=== PATIENT | female | born 1940 | race Caucasian/White ===

== ENCOUNTER 2016-08-02 08:44 | Inpatient (IN) | payer OTHER ==
--- NOTE | ~2016-08-02 | CN ---
Consultation Report [facility] [address] [place]. [address] NAME: CHRISTOPHER DIAZ : 44 STATUS : ADM IN PAT#: [id number] AGE: 76 ADM/REG DATE : 08/02/16 MR#: [id number] REPORT SERV DATE: 08/05/16 DICTATED BY: DAYRON GARZA DATE: 08/05/16 REPORT STATUS : Draft TRANSCRIBED BY: MODJamie DATE: 08/05/16 PSYCHIATRIC CONSULTATION DATE OF CONSULTATION: 08/05/2016 I reviewed this patient's medical record. I discussed the patient's status with Dr. Watt. I discussed this patient's status with her son, Santos. HISTORY OF PRESENT ILLNESS: She was admitted in an unresponsive state. She began to move and to respond after her friends prayed over her. PAST PSYCHIATRIC HISTORY: She had an admission to [facility] which is a psychiatric facility about 40 years ago. She said at that time, she suffered a breakdown after her mother's . She explained that she was always very dependent on her mother when she was alive. She also reports recurring bouts of depression and brief periods of euphoria when sometimes she spent excessively, over the years. After her hospitalization in [place], she was followed at [facility] for a period of months or years. She saw psychiatrist, Dr. Mantilla, there. During 2 previous admissions to this hospital in April 2013 and in November 2015, she presented with leg weakness which was thought to have psychogenic etiology. SOCIAL HISTORY: She lives alone, with good family and yarsanism support. MENTAL STATUS: She was pleasant and cooperative in attitude. Her mood was mostly euthymic. However, her affect was somewhat labile with 1 or 2 brief episodes of crying and a rapid return to euthymia. Her thinking was logical. She had no delusions. She had no hallucinations. She was oriented to time, place, and person. DIAGNOSES: 1. Bipolar disorder, currently stable. 2. 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 RECOMMENDATIONS: I agree with her referral to rehabilitation for strength training. After discharge from rehab, she should consider returning to [facility] to get followup outpatient psychiatric care. She was readily agreeable to doing this. I will add Seroquel 25 mg p.o. at bedtime. She should continue on her current low dose of Cymbalta. DK/MODL Dayron Garza M.D. Consultation Report [place] [address] [address] NAME: CHRISTOPHER DIAZ : 42 STATUS : ADM IN PAT#: [id number] AGE: 76 ADM/REG DATE : 08/02/16 MR#: [id number] REPORT SERV DATE: 08/05/16 DICTATED BY: DAYRON GARZA DATE: 08/05/16 REPORT STATUS : Draft TRANSCRIBED BY: CALVIN DATE: 08/05/16 / [id number]
--- NOTE | ~2016-08-02 | DS ---
Discharge Summary [facility] [address] [place]. [address] NAME: CHRISTOPHER DIAZ : 44 STATUS : DIS IN PAT#: [id number] AGE: 76 ADM/REG DATE : 08/02/16 MR#: [id number] REPORT SERV DATE: 08/13/16 DICTATED BY: ARGENTINA HUA DATE: 08/08/16 REPORT STATUS : Draft TRANSCRIBED BY: CALVIN DATE: 08/08/16 ADMISSION DATE: 08/02/2016 DISCHARGE DATE: 08/08/2016 DISCHARGE DIAGNOSES: 1. Acute encephalopathy. 2. Catatonic episode. 3. Hypertension. 4. Diabetes mellitus type 2. 5. Bipolar disorder. 6. Chronic obstructive pulmonary disease. DISCHARGE CONDITION: Stable. CONSULTATION: 1. Neurology, Dr. Bobby. 2. Psychiatry, Dr. Dayron Krishnamurthy. INVASIVE PROCEDURES: None. HISTORY OF PRESENT ILLNESS: For detailed HPI, make reference to Dr. Gonzalez's dictation on 08/02/2016. In brief, this is a 76-year-old female with medical history of hypertension, COPD, bipolar disorder who was brought to the emergency room because of a period of unawareness/unresponsiveness at home, which was concerning for a possible CVA. On arrival to the emergency department, the patient's initial NIH scale was 27. The patient had an emergency CT scan that shows no evidence of intracranial bleed. The patient subsequently received the tPA. The patient air way remained intact, did not require any intubation. The patient did not respond to any painful, verbal, or voice stimulus. The patient was subsequently transferred to the ICU for further monitoring. In the ICU, MRI of the brain was done that showed no acute intracranial abnormality. A lumbar puncture was done that showed no evidence of infection. Given the history of bipolar disorder, psychiatry was consulted. Upon further review of patient's history, it was noted that patient skipped some of bipolar medications at home. Psychiatry recommended to restart antipsychotic medication, they recommended home dose. The patient progressively became more awake and alert. The patient's blood sugar remained stable. The patient had no evidence of sepsis. The patient had no evidence of infection/sepsis. It was noted that the patient's episode of transient episode of unresponsiveness may have been a psychogenic unawareness, may be explained by catatonia, however, since recommence in patient's home medication, the patient continued to be awake, alert, oriented. The patient was subsequently transferred to the medical floor. On the medical floor, the patient continued to be pleasant, cooperative, had no behavioral disturbance. The patient was advised to continue home medication. The patient was subsequently discharged to [facility] [place]. DISCHARGE DISPOSITION: [facility]. DISCHARGE MEDICATION: Discharge Summary [address] [address] NAME: CHRISTOPHER DIAZ : 44 STATUS : DIS IN PAT#: [id number] AGE: 76 ADM/REG DATE : 08/02/16 MR#: [id number] REPORT SERV DATE: 08/13/16 DICTATED BY: ARGENTINA HUA DATE: 08/08/16 REPORT STATUS : Draft TRANSCRIBED BY: CALVIN DATE: 08/08/16 1. Norvasc 10 mg p.o. daily. 2. Aspirin 81 mg p.o. daily. 3. Pravastatin 20 mg p.o. daily. 4. Cymbalta 30 mg p.o. every morning. 5. Gabapentin 300 mg p.o. t.i.d. 6. Lopressor 12.5 mg p.o. b.i.d. 7. Melatonin 5 mg p.o. at bedtime. 8. Vitamin B12, one tab p.o. daily. 9. Baclofen 10 mg p.o. at bedtime. 10.Vitamin D3 2000 units p.o. daily. DISCHARGE FOLLOWUP: Follow up with primary care physician as an outpatient within one to two weeks of discharge. Continue follow up with primary psychiatrist as an outpatient. DICTATED BY: MD AFRICA Duran/CALVIN Argentina Hua MD / [id number] CC: MD Cipriano Duran M.D.
--- NOTE | ~2016-08-02 | HP ---
History And Physical [place] [id number] [facility] [place]. [address] NAME: CHRISTOPHER DIAZ : 42 STATUS : ADM IN [facility]#: [id number] AGE: 76 ADM/REG DATE : 08/02/16 MR#: [id number] REPORT SERV DATE: 08/02/16 DICTATED BY: AUSTIN GONZALEZ DATE: 08/02/16 REPORT STATUS : Draft TRANSCRIBED BY: MODL DATE: 08/02/16 DATE OF ADMISSION: 08/02/2016 HISTORY OF PRESENT ILLNESS: This is a 76-year-old female who is brought to the hospital after a period of unresponsiveness. Family last had seen her normal at 6:30 a.m. this morning. Her initial NIH scale was 27. Neurology evaluated the patient and enrolled her in for possible stroke. TPA was given this morning. She has thus far tolerated that well and was transferred to the ICU for further monitoring. Airway has been intact and she has not required intubation or airway support. The patient is really unresponsive to painful stimuli, verbal stimuli, or voice. Rest of the history is unable to be obtained. We do know that she was given Narcan without any response. Family had found her in a chair slumped over and not responding. EMS is the one who gave the Narcan without any reaction. REVIEW OF SYSTEMS: Unable to be obtained. PAST MEDICAL HISTORY: COPD, pulmonary embolism and DVT, headaches, bipolar and depression, type 2 diabetes, hypertension, GERD, restless legs, dyslipidemia, stroke, fatty liver disease, splenomegaly, obstructive sleep apnea, lymphedema. PAST SURGICAL HISTORY: Neck surgery, wrist surgery, lumbar spine surgery, hysterectomy with oophorectomy, cholecystectomy, appendectomy, left knee surgery, right shoulder surgery. ALLERGIES: CODEINE. HOME MEDICATION LIST: Reviewed. SOCIAL HISTORY: Lives in [place], [place]. . Quit alcohol in 1989. Quit smoking in 1993. She does have children. FAMILY HISTORY: Stroke and heart disease. PHYSICAL EXAMINATION: VITAL SIGNS: Per nursing flow sheet. GENERAL: No acute distress, lying in bed, eyes closed. NEURO: Really unresponsive to voice or noxious stimuli. Otherwise, unable to get any type of significant neuro exam. She is protecting her airway. HEENT: Normocephalic and atraumatic. Pupils are equal. NECK: Trachea midline. HEART: Regular rate and rhythm. No murmurs. LUNGS: Clear to auscultation bilaterally. No wheezes, rales, or rubs. GI: Soft, nontender, nondistended. EXTREMITIES: No cyanosis or clubbing. There is some trace edema. LABORATORIES AND RADIOLOGY STUDIES: Reviewed. History And Physical [address] [place]. [address] NAME: CHRISTOPHER DIAZ : 44 STATUS : ADM IN [facility]#: [id number] AGE: 76 ADM/REG DATE : 08/02/16 MR#: [id number] REPORT SERV DATE: 08/02/16 DICTATED BY: AUSTIN GONZALEZ DATE: 08/02/16 REPORT STATUS : Draft TRANSCRIBED BY: CALVIN DATE: 08/02/16 ASSESSMENT AND PLAN: 1. Unresponsive. 2. Possible stroke. 3. Type 2 diabetes. 4. Clinical chronic obstructive pulmonary disease by history. 5. Hypertension. We will provide supportive care here in the ICU. Neuro checks per stroke protocol. The patient is to get an MRI and EEG per Neurology. We will get glucose checks for her diabetes and cover her if needed. We will place her on a bronchodilator protocol. Monitor blood pressure. We will reconcile medications. CEP/MODL Austin Gonzalez DO / [id number] CC: DO Cipriano Black M.D.
--- NOTE | ~2016-08-02 | EEG ---
Electroencephalogram [place] [address] [place]. [address] NAME: CHRISTOPHER DIAZ : 44 STATUS : ADM IN PAT#: [id number] AGE: 76 ADM/REG DATE : 08/02/16 MR#: [id number] REPORT SERV DATE: 08/02/16 DICTATED BY: DATE: REPORT STATUS : Draft TRANSCRIBED BY: MODL DATE: 08/02/16 NEUROLOGY EEG EVALUATION CLINICAL INDICATIONS: Comatose state. DESCRIPTION: This EEG was performed using 10/20 electrode placement system. During the EEG study, symmetric background activity was noted with predominant occipital rhythm of roughly 8 hertz. Photic stimulation was performed with driving response. Hyperventilation was not performed secondary to the patient's underlying medical condition. During the EEG study, the patient was noted to have achieved drowsy state as well as stage I and II sleep. No focal abnormalities, seizure activity, or seizure discharge was otherwise noted during the EEG evaluation. INTERPRETATION: This EEG study obtained during awake and drowsy state may be considered within normal limits. No focal abnormalities, seizure activity, or seizure discharge was seen. No electrographic seizure was otherwise noted during the EEG study. [facility]/MODL Jose F Bobby MD / [id number] CC: DO Cipriano Black M.D.
--- NOTE | ~2016-08-02 | CN ---
Consultation Report [facility] [address] [place]. [address] NAME: CHRISTOPHER DIAZ : 44 STATUS : ADM IN PAT#: [id number] AGE: 76 ADM/REG DATE : 08/02/16 MR#: [id number] REPORT SERV DATE: 08/02/16 DICTATED BY: DATE: REPORT STATUS : Draft TRANSCRIBED BY: MODL DATE: 08/02/16 NEUROLOGY CONSULTATION DATE OF CONSULTATION: 08/02/2016 REASON FOR CONSULT: Unresponsiveness, concern for stroke. HISTORY OF PRESENT ILLNESS: This is a 76-year-old female, presented to [facility] on 08/02/2016 as the patient was found to be completely unresponsive. The patient was last noted to be normal on 08/02/2016 at 0630 hours when the patient was found by a friend to be unresponsive. EMS was called, and the patient was brought to the emergency department for further evaluation. The patient's son was present during the evaluation and denies any similar events in the past. Denies any recent illness, fever, chills, nausea, vomiting, chest pain, or shortness of breath. No reports of seizure-like activity was otherwise reported. The patient was not noted to have any history of seizures in the past. The patient's son denies any recent psychosocial stress. The patient does have a history of Eliquis as well as Xarelto usage for unclear reason, but sounds as the patient also had a history of DVT and pulmonary embolism. The patient has recently being taken off Xarelto and has not been taking any anticoagulations except for aspirin. The patient's son denies any recent changes in medication and denies any other issues. REVIEW OF SYSTEMS: Unable to be obtained from the patient. Per friend and son, it is otherwise negative. PAST MEDICAL HISTORY: Significant for COPD, pulmonary embolism, and DVT, chronic headaches, diabetes, as well as hypertension, gastroesophageal reflux disease, migraine headache, restless legs, and elevated cholesterol. The patient does have a history of strokes in the past as well as lymphedema, and obstructive sleep apnea. Per medical record in 2014, the patient was noted to have a history of bipolar disorder with depression. The patient does not appear to be on any antipsychotic right now. ALLERGIES: THE PATIENT WAS NOTED TO HAVE ALLERGY TO CODEINE. MEDICATIONS: The patient's list of medications consist of multivitamin, fish oil, omega-3 fatty acid, tramadol, potassium, calcium, vitamin D3, gabapentin, duloxetine, tizanidine, vitamin B complex, vitamin C, Requip, amlodipine, aspirin, lisinopril, metoprolol, pravastatin, Levemir, and baclofen. FAMILY HISTORY: Significant for diabetes as well as stroke and heart disease. SOCIAL HISTORY: The patient's son denies any tobacco, alcohol, or recreational drug usage. The patient apparently gets around with a walker at that time. The patient quit alcohol in 1989 and smoking in 1993. Consultation Report [place] [address] [place] [place]. [address] NAME: CHRISTOPHER DIAZ : 44 STATUS : ADM IN [facility]#: [id number] AGE: 76 ADM/REG DATE : 08/02/16 MR#: [id number] REPORT SERV DATE: 08/02/16 DICTATED BY: DATE: REPORT STATUS : Draft TRANSCRIBED BY: MODL DATE: 08/02/16 PHYSICAL EXAMINATION: VITAL SIGNS: At the time of evaluation, the patient was noted to have vital signs with T- max of 96.6, heart rate of 70, respirations of 12, and blood pressure of 151/56. GENERAL: The patient is well developed, well nourished, in no acute distress. CARDIOVASCULAR: Regular rate and rhythm. No carotid bruits were otherwise auscultated. PULMONARY: Clear to auscultation bilaterally. NEUROLOGICAL: Generally, the patient is comatose, unresponsive, and not following commands and not answering questions. Otherwise, the patient is protecting airway at the time of evaluation. Cranial nerves 2 through 12; pupils equal, round, and reactive to light. Horizontal eye movement was noted at the time of evaluation. Intact blink to threat response. Facial expression appeared to be symmetric. The patient demonstrated no apparent sensation to noxious stimulation in the facial area. Otherwise, the patient demonstrated no spontaneous movement. EXTREMITIES: However, while the patient was being moved from the stretcher to the CT scan of the bed, the patient was noted to have some trace movement of arms against gravity. The patient, in addition, was also noted to have ability to hold the left upper extremity against gravity for 1 second prior to the controlled fall. The patient's arm was elevated above the forehead, but does not have any falls of the arms against the head bilaterally. The patient, otherwise, demonstrated no grimace, posture, or withdrawal to noxious stimulation in bilateral upper and lower extremity. Deep tendon reflex was trace. Gait and cerebellar examination was not performed secondary to the patient's mental status. LABORATORY DATA: Laboratory study demonstrates sodium 141, potassium 4.3, chloride 107, bicarb 27, BUN of 28, creatinine 1.37, glucose of 132, calcium of 9.0, magnesium 2.1. White blood cell count of 7.8, hemoglobin of 13.7, hematocrit of 42.0, and platelet count of 460. CT scan of the brain, otherwise, demonstrated no acute process. Radiology report for CTA of the head and neck is currently pending. IMPRESSION: Unresponsiveness, last noted to be normal at 0630 hour today. The patient does not have any history of prior similar symptoms in the past. No seizure-like activity was noted and no history of seizure per medical records or family members. The patient's son denies any recent psychosocial stress. The patient was noted to have some ability to maintain the arm elevation against gravity on examination as well as controlled fall with the patient's arm does not fall against the forehead. NIH stroke scale was noted to be 27. TPA was initiated at 0858 for a presumed stroke. We will admit the patient to ICU for post tPA care. We will obtain MRI of her brain without contrast, obtain EEG. If no improvement or etiology for unresponsive was noted, we will obtain lumbar puncture in 24 hours after tPA. RECOMMENDATION: 1. Admit to ICU. 2. MRI of her brain without contrast. 3. EEG. 4. Ammonia, UDS, vitamin B12, folate, TSH, free T4, fasting lipid panel, and hemoglobin Consultation Report [place] [address] [facility] [place]. [address] NAME: CHRISTOPHER DIAZ : 44 STATUS : ADM IN PAT#: [id number] AGE: 76 ADM/REG DATE : 08/02/16 MR#: [id number] REPORT SERV DATE: 08/02/16 DICTATED BY: DATE: REPORT STATUS : Draft TRANSCRIBED BY: MODL DATE: 08/02/16 A1c with laboratory study. 5. Lipitor 80 mg p.o. at bedtime. 6. PT/OT, Speech Therapy evaluation and treatment. 7. Lumbar puncture in 24 hours after EEG if no symptomatic improvement was noted. [facility]/MODL Jose F Bobby MD / [id number] CC: DO Cipriano Black M.D.
[~2016-08-02 08:44] MED LIST: ACCUNEB INH; ARICEPT10 PO; ASAB PO; ASABAYER PO; BISR PR; BIST PO; C5 PO; CALTRA600D PO; CALTRAT600 PO; CENTRUM TAB1 TAB PO; CLARIT10 PO; DCN100 PO; DSS PO; DULERA 200 MCG/13 GM INH; FISH OIL1200 MG PO; FISH-EPA1000 MG PO; GLUCPH PO; GLUCPH8 PO; HALF81 PO; HCTZ25B PO; HUMULIN SC; HYDROCHLOROT25 MG PO; IBU800 PO; IRON PO; IRON325 MG PO; K-TABS10 MEQ PO; KLOR-CON M1010 MEQ PO; LEVAQUIN750 MG PO; LEVEMFLXPN SC; LEVEMIR SC; LEXAPRO20 PO; MAGOX4 PO; MELA3 PO; MELATONIN5 M1 PO; METHOC500B PO; MEVACOR10 MG PO; MEVACOR40 MG PO; MOMUD PO; MONO20 PO; MONOPRIL40 MG PO; MSCONT15 PO; MULTIPLE VIT PO; MULTIVIT/MIN PO; NORV10 PO; NOVOLOGMIX; NOVOLOGMIX SC; P5 PO; PCET PO; POT GLUCONAT595 M1 OR; PRILO PO; PRIN20 PO; PROVIGIL2 PO; REQUIP1 PO; REQUIP2 PO; STRESS600T PO; SUPER B-100 PO; SURBEX-T1 TAB PO; T PO; TOPAMAX200 MG PO; TRAZ100 PO; ULTRAM50 PO; V5 PO; VITAMIN B PO; VITAMIN D1000 UNI1 PO; VITAMIN D31000 UNIT PO; ZANTAC150 MG PO; ZESTRIL20 MG PO; [UNRECOGNIZED DRUG - CODE] OR
[2016-08-02 08:50] LABS: BASOPHILS 0.3 %; BASOPHILS ABSOLUTE 0.02 10/3/uL (0.0-0.16); EOSINOPHILS 0.9 %; EOSINOPHILS ABSOLUTE 0.07 10/3/uL (0.0-0.53); ER CBC TAT 0 Hrs 09 Mins; HEMOGLOBIN 13.7 g/dL (12.0-16.0); IMMATURE GRANULOCYTES 0.4 %; IMMATURE GRANULOCYTES ABSOLUTE 0.03 10/3/uL (0.0-0.11); LYMPHOCYTES 20.9 %; LYMPHOCYTES ABSOLUTE 1.64 10/3/uL (0.67-4.30); MEAN CORPUS HGB CONC 32.6 g/dL (32.0-36.0); MEAN CORPUSCULAR HEMOGLOB 29.3 pg (26.0-34.0); MEAN CORPUSCULAR VOLUME 89.7 fL (80-100); MEAN PLATELET VOLUME 11.3 fL (9.2-13.0); MONOCYTES 6.3 %; MONOCYTES ABSOLUTE 0.49 10/3/uL (0.21-1.20); NEUTROPHILS 71.2 %; NEUTROPHILS ABSOLUTE 5.58 10/3/uL (2.02-8.40); PLATELET COUNT 160 10/3/uL (150-400); RBC DISTRIBUTION WIDTH 13.1 % (12.0-16.0); RED CELL COUNT 4.68 10/6/uL (4.0-5.6); WHITE BLOOD CELLS 7.8 10/3/uL (4.5-10.5)
[2016-08-02 08:51] LABS: MANUAL DIFF NO %
[2016-08-02] MEDS ORDERED: *UNABLE3 (08:51)
[2016-08-02] MEDS ORDERED: FISH OIL (08:51)
[2016-08-02] MEDS ORDERED: TRAMADOL (08:51)
[2016-08-02] MEDS ORDERED: ONE A DAY VITAMIN (08:51)
[2016-08-02] MEDS ORDERED: CALCIUM + D (08:52)
[2016-08-02] MEDS ORDERED: GABAPENTIN (08:52)
[2016-08-02] MEDS ORDERED: TIZANIDINE (08:52)
[2016-08-02] MEDS ORDERED: CYMBALTA (08:52)
[2016-08-02] MEDS ORDERED: POTASSIUM (08:52)
[2016-08-02 08:53] LABS: PARTIAL THROMBO TIME 23.9 SEC (22.5-37.2)
[2016-08-02] MEDS ORDERED: REQUIP (08:53)
[2016-08-02] MEDS ORDERED: IRON (08:53)
[2016-08-02] MEDS ORDERED: B COMPLEX (08:53)
[2016-08-02] MEDS ORDERED: FOLIC (08:53)
[2016-08-02] MEDS ORDERED: ASPIRIN (08:53)
[2016-08-02] MEDS ORDERED: NORVASC (08:53)
[2016-08-02] MEDS ORDERED: VITAMIN C (08:53)
[2016-08-02] MEDS ORDERED: LISINOPRIL (08:54)
[2016-08-02] MEDS ORDERED: PRAVASTATIN (08:55)
[2016-08-02] MEDS ORDERED: LEVEMIR (08:55)
[2016-08-02] MEDS ORDERED: LOPRESSOR (08:55)
[2016-08-02] MEDS ORDERED: BACLOFEN (08:56)
[2016-08-02] MEDS ORDERED: VITAMIN D (08:57)
[2016-08-02 09:03] LABS: CHEST PAIN PROFILE TAT 0 Hrs 22 Mins; CHLORIDE, SERUM 107 MMOL/L (96-112); CO2 (CARBON DIOXIDE) 27 MMOL/L (24-34); CREATININE 1.37 MG/DL (0.55-1.02); GFR AFRICAN AMERICAN 44 ML/MIN (>=60); GFR NON AFRICAN AMERICAN 38 ML/MIN (>=60); POTASSIUM, SERUM 4.3 MMOL/L (3.5-5.3); SODIUM, SERUM 141 MMOL/L (135-148); TROPONIN I <0.02 NG/ML (<0.05)
[2016-08-02 09:06] LABS: ACETAMINOPHEN LEVEL (TYLENOL) < 2.0 MCG/ML (10.0-20.0); ALCOHOL < 10 MG/DL (0); BUN (BLOOD UREA NITROGEN) 28 MG/DL (6-23); GLUCOSE, SERUM 132 MG/DL (60-99); SALICYLATE < 1.7 MG/DL (-)
[2016-08-02 09:34] LABS: CREATININE 1.3 MG/DL (0.55-1.02)
[2016-08-02 10:04] LABS: ASCORBIC ACID (UR NOT ORDER) NEG (NEG); BILIRUBIN, URINE NEGATIVE (NEG); ER URINALYSIS TAT 0 Hrs 14 Mins; KETONE, URINE NEGATIVE (NEG); LEUKOCYTE ESTERASE(NOT OR NEG (NEG); NITRITE (URINE) NEG (NEG); WBC (NOT ORDERED) (RFLEX) 2 (0-5)
[2016-08-02 10:22] LABS: AMPHETAMINES (NOT ORD) NEG (NEG); BARBITURATES (NOT ORDERED NEG (NEG); BENZODIAZEPINES (NOT ORD) NEG (NEG); CANNABINOIDS (THC) NEG (NEG); COCAINE (NOT ORDERED) NEG (NEG); OPIATES NEG (NEG); PHENCYCLIDINE(PCP) NEG (NEG); TRICYCLICS NEG (NEG)
[2016-08-02 12:32] LABS: BASOPHILS 0.3 %; BASOPHILS ABSOLUTE 0.03 10/3/uL (0.0-0.16); EOSINOPHILS 0.3 %; EOSINOPHILS ABSOLUTE 0.03 10/3/uL (0.0-0.53); HEMATOCRIT 43.1 % (36.0-48.0); HEMOGLOBIN 14.4 g/dL (12.0-16.0); IMMATURE GRANULOCYTES 0.2 %; IMMATURE GRANULOCYTES ABSOLUTE 0.02 10/3/uL (0.0-0.11); LYMPHOCYTES 17.4 %; LYMPHOCYTES ABSOLUTE 1.55 10/3/uL (0.67-4.30); MEAN CORPUS HGB CONC 33.4 g/dL (32.0-36.0); MEAN CORPUSCULAR VOLUME 89.8 fL (80-100); MEAN PLATELET VOLUME 11.4 fL (9.2-13.0); MONOCYTES 5.1 %; MONOCYTES ABSOLUTE 0.45 10/3/uL (0.21-1.20); NEUTROPHILS 76.7 %; NEUTROPHILS ABSOLUTE 6.82 10/3/uL (2.02-8.40); PLATELET COUNT 153 10/3/uL (150-400); RBC DISTRIBUTION WIDTH 12.9 % (12.0-16.0); WHITE BLOOD CELLS 8.9 10/3/uL (4.5-10.5)
[2016-08-02 12:34] LABS: MANUAL DIFF NO %
[2016-08-02 12:42] LABS: INTERNATIONAL NORMAL RATI 1.1 UNITS (-); PARTIAL THROMBO TIME 24.9 SEC (22.5-37.2); PROTIME (NOT ORD) 13.7 SEC (12.0-14.5)
[2016-08-02 13:19] LABS: GLYCOHEMOGLOBIN (HbA1c) 8.6 % (4.7-6.1)
[2016-08-02 13:22] LABS: PLATELET ESTIMATE ADQ (ADEQUATE)
[2016-08-02 13:23] LABS: RBC MORPHOLOGY NORM (NORMAL)
[2016-08-02 13:24] LABS: CHOL/HDL RATIO(NOT ORDER) 4.2 (0-5); CHOLESTEROL 155 MG/DL (< 200); CPK (IF ELEVATED MB BANDS) 80 U/L (0-200); FREE T4 0.93 NG/DL (0.76-1.46); HDL CHOLESTEROL 37 MG/DL (> 49); LDL CHOLESTEROL 94 MG/DL (< 130); NON-HDL CHOLESTEROL 118 MG/DL (< 160); TRIGLYCERIDE 120 MG/DL (< 150); TROPONIN I <0.02 NG/ML (<0.05)
[2016-08-02 13:25] LABS: FOLATE 35.5 NG/ML (>5.2); ULTRASENSITIVE TSH 0.751 MCIU/ML (0.358-3.740)
[2016-08-02 13:48] LABS: PROCALCITONIN 0.05 ng/mL (<0.5)
[2016-08-02 20:01] LABS: CPK (IF ELEVATED MB BANDS) 46 U/L (0-200); TROPONIN I <0.02 NG/ML (<0.05)
[2016-08-03 04:06] LABS: BASOPHILS 0.2 %; BASOPHILS ABSOLUTE 0.02 10/3/uL (0.0-0.16); EOSINOPHILS 0.9 %; EOSINOPHILS ABSOLUTE 0.08 10/3/uL (0.0-0.53); HEMATOCRIT 42.4 % (36.0-48.0); HEMOGLOBIN 13.8 g/dL (12.0-16.0); IMMATURE GRANULOCYTES 0.1 %; IMMATURE GRANULOCYTES ABSOLUTE 0.01 10/3/uL (0.0-0.11); LYMPHOCYTES 23.5 %; LYMPHOCYTES ABSOLUTE 2.04 10/3/uL (0.67-4.30); MEAN CORPUS HGB CONC 32.5 g/dL (32.0-36.0); MEAN CORPUSCULAR HEMOGLOB 29.6 pg (26.0-34.0); MEAN CORPUSCULAR VOLUME 90.8 fL (80-100); MEAN PLATELET VOLUME 11.4 fL (9.2-13.0); MONOCYTES 7.1 %; MONOCYTES ABSOLUTE 0.62 10/3/uL (0.21-1.20); NEUTROPHILS 68.2 %; NEUTROPHILS ABSOLUTE 5.92 10/3/uL (2.02-8.40); PLATELET COUNT 148 10/3/uL (150-400); RBC DISTRIBUTION WIDTH 13.2 % (12.0-16.0); RED CELL COUNT 4.67 10/6/uL (4.0-5.6); WHITE BLOOD CELLS 8.7 10/3/uL (4.5-10.5)
[2016-08-03 04:08] LABS: MANUAL DIFF NO %
[2016-08-03 04:29] LABS: CALCIUM, SERUM 8.2 MG/DL (8.5-10.4); CHLORIDE, SERUM 105 MMOL/L (96-112); CO2 (CARBON DIOXIDE) 28 MMOL/L (24-34); CPK (IF ELEVATED MB BANDS) 36 U/L (0-200); CREATININE 1.03 MG/DL (0.55-1.02); GFR AFRICAN AMERICAN 62 ML/MIN (>=60); GFR NON AFRICAN AMERICAN 54 ML/MIN (>=60); GLUCOSE, SERUM 147 MG/DL (60-99); POTASSIUM, SERUM 3.9 MMOL/L (3.5-5.3); SODIUM, SERUM 139 MMOL/L (135-148); TROPONIN I <0.02 NG/ML (<0.05)
[2016-08-03 04:30] LABS: BUN (BLOOD UREA NITROGEN) 20 MG/DL (6-23)
[2016-08-03] MEDS ORDERED: LEVEMIR SC (10:00)
[2016-08-03] MEDS ORDERED: ZANAFLEX 4 MG TA4 MG PO (10:01)
[2016-08-03] MEDS ORDERED: KLOR-CON 1010 MEQ PO (10:01)
[2016-08-03] MEDS ORDERED: REQUIP2 PO (10:02)
[2016-08-03] MEDS ORDERED: NEUR300 PO (10:03)
[2016-08-03] MEDS ORDERED: PRIN5 PO (10:03)
[2016-08-03] MEDS ORDERED: LOP25 PO (10:13)
[2016-08-03] MEDS ORDERED: PRAVAC PO (10:13)
[2016-08-03] MEDS ORDERED: MULTIVIT/MIN PO (10:14)
[2016-08-03] MEDS ORDERED: ASAB PO (10:15)
[2016-08-03] MEDS ORDERED: FISH OIL1200 MG PO (10:15)
[2016-08-03] MEDS ORDERED: CALTRA600D PO (10:16)
[2016-08-03] MEDS ORDERED: ADVIL PM1 CAP PO (10:17)
[2016-08-03] MEDS ORDERED: FERROUS SULF325 M1 PO (10:17)
[2016-08-03] MEDS ORDERED: MELATONIN5 M1 PO (10:18)
[2016-08-03] MEDS ORDERED: VITAMIN B PO (10:18)
[2016-08-03] MEDS ORDERED: VITAMIN C PO (10:19)
[2016-08-03] MEDS ORDERED: CYMBALTA30 PO (15:30)
[2016-08-03] MEDS ORDERED: LIOR10 PO (15:31)
[2016-08-03] MEDS ORDERED: VITAMIN D31000 UNIT PO (15:32)
[2016-08-03] MEDS ORDERED: NORV10 PO (15:39)
[2016-08-04 04:30] LABS: BASOPHILS 0.3 %; BASOPHILS ABSOLUTE 0.03 10/3/uL (0.0-0.16); EOSINOPHILS 0.9 %; HEMATOCRIT 43.9 % (36.0-48.0); HEMOGLOBIN 13.9 g/dL (12.0-16.0); IMMATURE GRANULOCYTES 0.3 %; IMMATURE GRANULOCYTES ABSOLUTE 0.03 10/3/uL (0.0-0.11); LYMPHOCYTES 17.1 %; LYMPHOCYTES ABSOLUTE 1.82 10/3/uL (0.67-4.30); MEAN CORPUS HGB CONC 31.7 g/dL (32.0-36.0); MEAN CORPUSCULAR HEMOGLOB 28.9 pg (26.0-34.0); MEAN CORPUSCULAR VOLUME 91.3 fL (80-100); MEAN PLATELET VOLUME 10.8 fL (9.2-13.0); MONOCYTES 8.9 %; MONOCYTES ABSOLUTE 0.95 10/3/uL (0.21-1.20); NEUTROPHILS 72.5 %; NEUTROPHILS ABSOLUTE 7.69 10/3/uL (2.02-8.40); PLATELET COUNT 147 10/3/uL (150-400); RED CELL COUNT 4.81 10/6/uL (4.0-5.6); WHITE BLOOD CELLS 10.6 10/3/uL (4.5-10.5)
[2016-08-04 04:33] LABS: MANUAL DIFF NO %
[2016-08-04 04:45] LABS: BUN (BLOOD UREA NITROGEN) 18 MG/DL (6-23); CALCIUM, SERUM 8.6 MG/DL (8.5-10.4); CHLORIDE, SERUM 105 MMOL/L (96-112); CO2 (CARBON DIOXIDE) 27 MMOL/L (24-34); CREATININE 1.05 MG/DL (0.55-1.02); GFR AFRICAN AMERICAN 61 ML/MIN (>=60); GFR NON AFRICAN AMERICAN 52 ML/MIN (>=60); GLUCOSE, SERUM 173 MG/DL (60-99); PHOSPHORUS, SERUM 3.2 MG/DL (2.5-4.5); POTASSIUM, SERUM 4.1 MMOL/L (3.5-5.3); SODIUM, SERUM 139 MMOL/L (135-148)
[2016-08-04 14:27] LABS: GLUCOSE CSF 92 MG/DL (45-70); TOTAL PROTEIN, CSF 70.5 MG/DL (15-45)
[2016-08-04 14:37] LABS: CSF BASO 0 % (NO REF RANGE); CSF EOS 1 % (0-1); CSF LYMPH (NOT ORD) 20 % (28-96); CSF MONO 6 % (16-56); CSF SEGS (NOT ORD) 73 % (0-7); CSF WBC (NOT ORD) 24 /uL (0-10)
[2016-08-04 14:38] LABS: CSF APPEARANCE (NOT ORD) CLOUDY (CLEAR); CSF COLOR (NOT ORD) RED (COLORLESS); CSF RBC (NOT ORD) 8000 MM3 (NO REFERENCE); CSF XANTHROCHROMIA NEG (NEG)
[2016-08-05 07:50] LABS: BASOPHILS 0.3 %; BASOPHILS ABSOLUTE 0.03 10/3/uL (0.0-0.16); EOSINOPHILS 1.3 %; EOSINOPHILS ABSOLUTE 0.12 10/3/uL (0.0-0.53); HEMATOCRIT 45.2 % (36.0-48.0); HEMOGLOBIN 14.6 g/dL (12.0-16.0); IMMATURE GRANULOCYTES 0.3 %; IMMATURE GRANULOCYTES ABSOLUTE 0.03 10/3/uL (0.0-0.11); LYMPHOCYTES 21.5 %; LYMPHOCYTES ABSOLUTE 2.01 10/3/uL (0.67-4.30); MEAN CORPUS HGB CONC 32.3 g/dL (32.0-36.0); MEAN CORPUSCULAR HEMOGLOB 29.4 pg (26.0-34.0); MEAN CORPUSCULAR VOLUME 90.9 fL (80-100); MEAN PLATELET VOLUME 11.3 fL (9.2-13.0); MONOCYTES 9.8 %; MONOCYTES ABSOLUTE 0.92 10/3/uL (0.21-1.20); NEUTROPHILS 66.8 %; NEUTROPHILS ABSOLUTE 6.24 10/3/uL (2.02-8.40); PLATELET COUNT 153 10/3/uL (150-400); RBC DISTRIBUTION WIDTH 13.1 % (12.0-16.0); RED CELL COUNT 4.97 10/6/uL (4.0-5.6); WHITE BLOOD CELLS 9.4 10/3/uL (4.5-10.5)
[2016-08-05 07:53] LABS: MANUAL DIFF NO %
[2016-08-05 07:56] LABS: CALCIUM, SERUM 9.1 MG/DL (8.5-10.4); CHLORIDE, SERUM 104 MMOL/L (96-112); CO2 (CARBON DIOXIDE) 29 MMOL/L (24-34); CREATININE 1.05 MG/DL (0.55-1.02); GFR AFRICAN AMERICAN 61 ML/MIN (>=60); GFR NON AFRICAN AMERICAN 52 ML/MIN (>=60); POTASSIUM, SERUM 4.6 MMOL/L (3.5-5.3); SODIUM, SERUM 138 MMOL/L (135-148)
[2016-08-05 07:57] LABS: BUN (BLOOD UREA NITROGEN) 22 MG/DL (6-23); GLUCOSE, SERUM 230 MG/DL (60-99)
[2016-08-07 13:18] LABS: HSV DNA TYPE 1 Not Detected (NOTDET); HSV DNA TYPE 2 Not Detected (NOTDET)
[2016-08-08] MEDS ORDERED: LIPITOR80 MG PO (17:22)
[2016-08-08] MEDS ORDERED: SEROQUEL25 PO (17:24)
== END 2016-08-08 18:05 | DRG 885 ==
LOC: ER 08:44 → CCU 09:45 → 1SO 08-04 10:06
PROVIDERS: Emergency Medicine; Internal Medicine Pulmonary Disease; Psychiatry & Neurology Neurology
PROC: 3E03317 Introduction of Other Thrombolytic into Peripheral Vein, Percutaneous Approach (ICD-10-PCS; principal; 2016-08-02)
PROC: 009U3ZZ Drainage of Spinal Canal, Percutaneous Approach (ICD-10-PCS; 2016-08-04)
PROC: B01B1ZZ Fluoroscopy of Spinal Cord using Low Osmolar Contrast (ICD-10-PCS; 2016-08-04)
DX: F30.2 Manic episode, severe with psychotic symptoms (principal); G93.49 Other encephalopathy; E11.42 Type 2 diabetes mellitus with diabetic polyneuropathy; K76.0 Fatty (change of) liver, not elsewhere classified; J44.9 Chronic obstructive pulmonary disease, unspecified; R29.727 NIHSS score 27; I10 Essential (primary) hypertension; E78.5 Hyperlipidemia, unspecified; G47.33 Obstructive sleep apnea (adult) (pediatric); G25.81 Restless legs syndrome; K21.9 Gastro-esophageal reflux disease without esophagitis; Z79.82 Long term (current) use of aspirin; Z79.899 Other long term (current) drug therapy; Z87.891 Personal history of nicotine dependence; Z86.718 Personal history of other venous thrombosis and embolism; Z86.711 Personal history of pulmonary embolism; Z86.73 Personal history of transient ischemic attack (TIA), and cerebral infarction without residual deficits; Z88.5 Allergy status to narcotic agent
CPT/HCPCS: 62270; 70496; 70498; 70551; 71010; 77003; 80048; 80061; 80305; 80307; 81001; 82140; 82550; 82607; 82746; 82945; 82962; 83036; 83735; 84100; 84145; 84157; 84439; 84443; 84484; 85025; 85610; 85730; 87070; 87205; 87327; 87529; 87529-59; 87641; 89051; 92523-GN; 92610-GN; 93005; 95819; 96365; 96375; 97110-GO; 97110-GP; 97116-GP; 97162-GP; 97166-GO; 97530-GO; 97530-GP; 97535-GO; 99291; A9270-GY; C8929; G8978-CM-GP; G8979-CJ-GP; G8996-CI-GN; G8997-CI-GN; G8998-CI-GN; J2997; Q9957; Q9967